=== PATIENT | male | born 1965 | race Caucasian/White ===

== ENCOUNTER → 2025-05-17 07:08 | Outpatient (REF) | payer OTHER, SELFPAY | LOC: HWRAD 07:08 | PROVIDERS: ATTENDING PHYSICIAN Family Medicine | DX: E04.1 Nontoxic single thyroid nodule (principal) | CPT/HCPCS: 76536 ==

== ENCOUNTER → 2025-07-07 06:58 | Outpatient (REF) | payer OTHER, SELFPAY ==
[2025-07-07 07:30] VITALS: BP 155/92; BP_SYST 61
== END ==
LOC: RADI 06:58
PROVIDERS: ATTENDING PHYSICIAN Nurse Practitioner Family; FAMILY PHYSICIAN Family Medicine
DX: E04.1 Nontoxic single thyroid nodule (principal)
CPT/HCPCS: 10005; 88173

== ENCOUNTER 2025-10-05 06:13 | Day surgery (SDC) | payer OTHER, SELFPAY ==
[2025-09-21 08:52] LABS: Hematocrit 43.5 % (39.0-52.0); Hemoglobin 15.5 g/dL (13.0-18.0); Mean Corp Hgb Conc. 35.6 g/dL (33.0-37.0); Mean Corpuscular Volume 89.5 fL (80.0-94.0); Platelet Count 211 10^3/uL (130-400); Red Cell Dist. Width 12.1 % (11.5-14.5)
[2025-09-21 09:02] LABS: APTT 29.6 Sec (23.4-35.0); INR 0.96; PT 13.1 Sec (11.4-14.6)
[2025-09-21 09:25] LABS: ALT (SGPT) 37 U/L (0-50); AST (SGOT) 41 U/L (17-59); Albumin 4.4 g/dl (3.5-5.0); Alkaline Phosphatase 102 U/L (38-126); Blood Urea Nitrogen 14 mg/dl (9-20); Calcium 9.6 mg/dl (8.4-10.2); Carbon Dioxide 30 mmol/L (22-30); Chloride 103 mmol/L (98-107); Glucose 110 mg/dl (70-99); Potassium 4.6 mmol/L (3.5-5.1); Sodium 136 mmol/L (135-145); Total Protein 7.1 g/dl (6.3-8.2); eGFR > 60.00
[2025-09-21 13:59] VITALS: BMI 32.3
[2025-10-05 08:49] VITALS: BMI 32.3
[2025-10-05 08:55] VITALS: BP 150/89
[2025-10-05] MEDS: TYLENOL 1000 MG PO (09:05)
[2025-10-05] MEDS: HEPARIN 5000 UNITS SC (09:06)
[2025-10-05] MEDS: NORMOSOL-R/PLASMALYTE-A 1000 IV (09:06)
[2025-10-05] MEDS: NEURONTIN 300 MG PO (09:06)
[2025-10-05 11:00] VITALS: BP 136/80; BP 150/89
--- NOTE | 2025-10-05 11:07 | OR.RPT ---
Operative Report
Operative Report
DATE OF OPERATION: October 05, 2025
PREOPERATIVE DIAGNOSIS: Left Thyroid Nodule - E041
POSTOPERATIVE DIAGNOSIS: Same
SURGEON: Michel Tapia M.D.
OPERATION: Left Thyroidectomy & Limited Neck Dissection - [id number]
ANESTHESIA: GET
ESTIMATED BLOOD LOSS: 2 cc
DRAINS: None
SPECIMEN: left total thyroid lobe and isthmus and left level paratracheal tissue
FINDINGS: Left thyroid tumor
COMPLICATIONS: None
PROCEDURE:
The patient was taken to the operating room and placed in the usual supine position. After adequate general endotracheal anesthesia was established, the patient�s neck was extended, prepped, and draped in the typical sterile fashion. A 4 cm
transcervical incision was made two fingerbreadths above the sternal notch. The skin incision was made with the #15 blade, which was taken through the skin into the subcutaneous tissue. The underlying platysma muscle was divided, and subplatysmal
flaps were created superiorly to the thyroid cartilage and inferiorly to the sternal notch. Strap muscles were identified and at the midline.
Attention was turned to the patient�s left thyroid lobe. The left thyroid lobe was mobilized medially. During this process, the left middle thyroid vein and inferior thyroid artery were dissected and ligated with Ligasure. There was a substernal
extension, which was delivered out of the mediastinum through the cervical incision. Next, the left superior pole was taken down by dissecting and transecting the superior pole vessels with a Ligasure. The left thyroid lobe was mobilized medially.
During this process, the left recurrent laryngeal nerve was identified and preserved throughout its entire course. The left superior parathyroid gland was identified and preserved. The left thyroid lobe with isthmus was resected from the trachea and
sent to the pathology department.
At this time, the left neck dissection was performed. The tissue between the left carotid artery to the trachea into the anterior mediastinum was carefully dissected. The previously identified recurrent laryngeal nerve and parathyroid glands were
preserved. The tissue was removed and sent to the pathology department.
After achieving adequate hemostasis, the strap muscle was approximated with #3-0 Vicryl in a running fashion, and the platysma muscles were reapproximated with #3-0 Vicryl in an interrupted manner. The skin was then closed with #4-0 Monocryl in a
running subcuticular technique. Steri-strips and sterile dressings were applied. The patient tolerated the procedure well. The final instrument, needle, and sponge counts were correct.
[2025-10-05 11:15] VITALS: BP 123/82
[2025-10-05 11:38] VITALS: BP 134/88
[2025-10-05 12:00] VITALS: BP 121/79
[2025-10-05 12:15] VITALS: BP 125/78
--- NOTE | 2025-10-22 16:30 | OR.RPT ---
Operative Report
Operative Report
Date of Operation: October 22, 2025
Preoperative Diagnosis: Right upper lobe lung cancer - [id number]
Postoperative Diagnosis: Same
Surgeon: Michel Tapia M.D.
Operation: Minimally invasive wedge resection of right upper lobe tumors x 2, right upper lobectomy, and mediastinal lymph node dissection - [id number]
Anesthesia: Double-lumen endotracheal anesthesia
Estimated Blood Loss: 100 cc
Drains: 33F chest tube in the right chest
Specimen: Right upper lobe anterior tumor, right upper lobe posterior tumor, right upper lobe, and mediastinal lymph nodes
Findings: Multifocal cancer in the right upper lobe. Difficult intubation
Complications: None
Procedure:
The patient was taken to the operating room and placed in the usual supine position. It took about an hour to place a double-lumen tube due to his anatomy, as per the anesthesia team. After an adequate double-lumen endotracheal tube was placed, the
patient was positioned in the left decubitus position with the right chest up. The right chest was prepped and draped in the usual sterile fashion. At this time, a 6 cm mid-axillary incision was made with a #10 blade, and this was taken through the
skin into the subcutaneous tissue. The serratus anterior muscle overlying the 5th intercostal space was identified and split along the course of the muscle fibers. The intercostal muscle of the fifth intercostal space was divided, and the left chest
was entered. The left chest was explored. The tumors in the anterior and posterior aspects of the apex of the right upper lobe were identified.
First, the anterior tumor, which was biopsied preoperatively and showed inflammatory cells, was wedge resected and sent to the pathology department for evaluation, which revealed adenocarcinoma. Since this represented the second cancer in the right
upper lobe, a decision was made to proceed with right upper lobectomy, as I discussed with the patient and his family.
The fissures the right upper lobe from the middle and lower lobes were completed using Ligasure and EndoGIA purple tri-stapler. The left pulmonary artery branches to the right upper lobe were identified, carefully dissected, ligated, and
divided with an EndoGIA gold vascular stapler. The right superior vein draining the right upper lobe was identified, carefully dissected, transected, and ligated with an EndoGIA vascular gold stapler. The bronchus was dissected, transected, and
divided with an EndoGIA purple stapler. The left upper lobe was removed and sent to pathology for a permanent section. At this time, mediastinal lymph node dissection was performed. The lymph nodes from stations 3 to 10 were taken and sent to
pathology for permanent section. Hemostasis was obtained. A 33 [place] chest tube was placed through the anterior thoracostomy incision and anchored to the skin using a #2 nylon suture. The ribs were re-approximated with 1 Vicryl in the transcostal
fascia. The serratus anterior muscle was also re-approximated with 1 Vicryl in a running fashion. The fascia was approximated with 1 Vicryl in a running fashion. The subcutaneous tissue was re-approximated with 3-0 Vicryl in a running fashion. The
skin was approximated with 4-0 Monocryl in a running subcuticular fashion. Steri-strips and a sterile dressing were placed. The chest tube was connected to the Pleurovac. The patient was placed back in the supine position and extubated without any
problems. The final needle, sponge, and instrument counts were correct. The patient was transferred to the recovery room.
== END 2025-10-05 12:28 | disposition home or self-care (01) ==
LOC: SDS 06:13
PROVIDERS: ATTENDING PHYSICIAN Surgery; FAMILY PHYSICIAN Family Medicine
DX: C73 Malignant neoplasm of thyroid gland (principal)
CPT/HCPCS: 60252; 80053; 85027; 85610; 85730; 88307; 93005